=== PATIENT | male | born 1930 | race Caucasian/White ===

== ENCOUNTER 2017-01-08 14:19 | Emergency (ER) | payer MEDICARE ==
[~2017-01-08] VITALS: Wt 72.6 kg
[2017-01-08] MEDS ORDERED: ASPIRIN325 M2 PO (14:32)
[2017-01-08] MEDS ORDERED: COLACE100 MG PO (14:33)
[2017-01-08] MEDS ORDERED: D3 DOTS2000 UNIT PO (14:33)
[2017-01-08] MEDS ORDERED: VITAMIN B121000 MC1 PO (14:34)
[2017-01-08] MEDS ORDERED: VENTOLIN 02.5 MG/3 M INH (14:34)
[2017-01-08] MEDS ORDERED: NORVASC5 MG PO (14:34)
[2017-01-08] MEDS ORDERED: DULCOLAX10 M1 RC (14:35)
[2017-01-08] MEDS ORDERED: ATIVAN0.5 MG PO (14:35)
[2017-01-08] MEDS ORDERED: DESITIN ORIGINAL TP (14:36)
[2017-01-08 14:55] LABS: BASO # 0.1 10*3/uL (0.0-0.1); BASO % 0.8 % (0.0-1.0); EOS # 0.6 10*3/uL (0.0-0.4); EOS % 7.3 % (1.0-4.0); HEMATOCRIT 35.3 % (42.0-52.0); LYMPH # 1.4 10*3/uL (1.3-4.4); LYMPH % 16.4 % (27.0-41.0); MEAN CELL VOLUME 90.7 fl (80.0-94.0); MEAN CORPUSCULAR HGB 28.3 pg (27.0-31.0); MEAN CORPUSCULAR HGB CONC 31.2 g/dl (33.0-37.0); MEAN PLATELET VOLUME 9.7 fl (9.6-12.3); MONO # 0.7 10*3/uL (0.1-1.0); NEUT # 5.5 10*3/uL (2.3-7.9); NEUT % 66.4 % (47.0-73.0); PLATELET COUNT AUTOMATED 157 10*3/uL (130-400); RED BLOOD COUNT 3.89 10*6/uL (4.50-5.90); RED CELL DISTRI WIDTH 13.3 % (0-14.5); WHITE BLOOD COUNT 8.2 10*3/uL (4.8-10.8)
[2017-01-08 15:13] LABS: ALBUMIN 2.6 gm/dl (3.1-4.5); BILIRUBIN, TOTAL 0.3 mg/dl (0.2-1.0); POTASSIUM 4.7 mmol/L (3.5-5.1); TOTAL PROTEIN 6.1 gm/dL (6.4-8.2)
[2017-01-08] MEDS ORDERED: PREDNISONE10 MG PO (16:59)
== END 2017-01-08 17:08 | disposition other institution (70) ==
LOC: ED 14:19
PROVIDERS: Nurse Practitioner Family
DX: J40 Bronchitis, not specified as acute or chronic (principal); Z88.0 Allergy status to penicillin; Z79.82 Long term (current) use of aspirin; Z79.899 Other long term (current) drug therapy